=== PATIENT | male | born 1995 | race African-American/Black ===

== ENCOUNTER 2021-10-19 15:49 | Emergency (ER) | payer OTHER ==
[2021-10-19] MEDS ORDERED: Ketorolac Tromethamine 30 MG/ML VIAL ONE (18:03)
[2021-10-19] MEDS ORDERED: Acetaminophen 500 MG TAB ONE (18:03)
[2021-10-20 00:27] LABS: SARS-CoV-2 PCR by NAA Not Detected (NotDetected)
== END 2021-10-19 18:35 | disposition home or self-care (01) ==
LOC: CSHERS 15:49
DX: H66.92 Otitis media, unspecified, left ear (principal); J32.9 Chronic sinusitis, unspecified; B34.9 Viral infection, unspecified; Z20.822 Contact with and (suspected) exposure to COVID-19; I10 Essential (primary) hypertension
CPT/HCPCS: 71045; 87081; 87430; 87804; 96372; J1885; U0003; U0005

== ENCOUNTER 2022-02-10 21:17 | Emergency (ER) | payer OTHER | END 2022-02-10 21:52 | disposition home or self-care (01) | LOC: CSHERS 21:17 | DX: D17.23 Benign lipomatous neoplasm of skin and subcutaneous tissue of right leg (principal); I10 Essential (primary) hypertension | CPT/HCPCS: 99282 ==

== ENCOUNTER 2022-09-14 14:57 | Emergency (ER) | payer OTHER ==
[2022-09-14] MEDS ORDERED: Ibuprofen 200 MG TAB ONE (15:19)
== END 2022-09-14 17:15 | disposition home or self-care (01) ==
LOC: CSHERS 14:57
DX: T14.8XXA Other injury of unspecified body region, initial encounter (principal); I10 Essential (primary) hypertension; V49.9XXA Car occupant (driver) (passenger) injured in unspecified traffic accident, initial encounter
CPT/HCPCS: 70450; 71250; 72125; 74177